=== PATIENT | male | born 1985 | race African-American/Black ===

== ENCOUNTER 2020-01-31 07:08 | Emergency (ER) | payer MEDICAID ==
[~2020-01-31] VITALS: Ht 175.3 cm; Wt 59.0 kg
[2020-01-31] MEDS ORDERED: LORazepam Inj 2mg/ml 1ml IM ONE (07:15)
--- NOTE | 2020-01-31 07:15 | NUR ---
ED Nurse Note: Patient was BIBA RA#[id number] from [facility], stated used meth 4-5 hours ago.Patient presented anxious, restless, has BP 180/110, other VSS at this time. Patient was connected to the monitor, ER MD at bed side,
--- NOTE | 2020-01-31 07:21 | Emergency Room Report ---
History of Present Illness General Chief Complaint: Behavioral Complaint Source: Patient Present Illness HPI Patient is a 34-year-old male presents for increased agitation after recent crystal meth use. Patient denies any other current complaints. Patient had been brought in by EMS from his boarding care. Denies any vomiting or diarrhea. Allergies: Coded Allergies: No Known Allergies (Unverified , 01/31/20) COVID-19 Screening Contact w/high risk pt: No Experienced COVID-19 symptoms?: No COVID-19 Testing performed RESEARCH BIOSTATISTICIAN: No Patient History Past Medical History: see triage record Reviewed Nursing Documentation: PMH: Agreed; PSxH: Agreed Nursing Documentation-PMH Hx Hypertension: Yes Review of Systems All Other Systems: negative except mentioned in HPI Physical Exam Vital Signs Date Time Temp Pulse Resp B/P (MAP) Pulse Ox O2 Delivery O2 Flow Rate FiO2 01/31/20 07:07 98.8 90 22 180/70 (106) 98 Room Air Sp02 EP Interpretation: reviewed, normal General Appearance: normal inspection, well appearing, no apparent distress, alert, GCS 15 Head: atraumatic ENT: normal ENT inspection, hearing grossly normal, normal voice Neck: normal inspection, full range of motion, supple, no bony tend Respiratory: normal inspection, lungs clear, normal breath sounds, no respiratory distress, no retraction, no wheezing Cardiovascular #1: regular rate, rhythm, no edema Gastrointestinal: normal inspection, normal bowel sounds, non tender, soft, no guarding, no hernia Genitourinary: no CVA tenderness Musculoskeletal: normal inspection, back normal, normal range of motion Neurologic: alert, responsive, speech normal, normal inspection Psychiatric: normal inspection, judgement/insight normal, mood/affect normal Medical Decision Making ER Course Patient presented for recent methamphetamine use.Differential diagnosis include was not limited to overdose, psychosis, substance abuse among others. EKG interpreted by me showed normal sinus rhythm with a rate of [address] or T wave changes. EKG Diagnostic Results Rate: normal Rhythm: NSR ST Segments: no acute changes Last Vital Signs Date Time Temp Pulse Resp B/P (MAP) Pulse Ox O2 Delivery O2 Flow Rate FiO2 01/31/20 07:07 98.8 90 22 180/70 (106) 98 Room Air Ladarius Friend MD Jan 31, 2020 07:21
[2020-01-31 07:27] VITALS: BP 180/110
--- NOTE | 2020-01-31 10:20 | NUR ---
spoke to hillary at the care center they are unable to picker tender helper the patient , patient will be send via taxi ti the [facility]
[2020-01-31 11:30] VITALS: BP 136/99
--- NOTE | 2020-01-31 11:45 | NUR ---
ED Nurse Note: Patient sleeping, VSS at this time, NAD noted
[2020-01-31 14:36] VITALS: BP 136/99
--- NOTE | 2020-01-31 14:37 | NUR ---
ER DISCHARGE NOTE: Patient is cleared to be discharged per ERMD, pt is aox4, on room air, with stable vital signs. pt was given dc and prescription instructions, pt was able to verbalize understanding, pt id band and iv site removed without complications. pt is able to ambulate with steady gait. pt took all belongings.
--- NOTE | 2020-02-02 16:13 | Cardiology Report ---
APPROVED REPORT EKG Measurement Heart [id number] <Conclusion> Normal sinus rhythm Moderate voltage criteria for LVH, may be normal variant Prolonged QT Abnormal ECG
== END 2020-01-31 14:37 | disposition home or self-care (01) ==
LOC: EDBD 07:08 → EMR 08:16
DX: R45.1 Restlessness and agitation (principal); F15.90 Other stimulant use, unspecified, uncomplicated; I10 Essential (primary) hypertension
CPT/HCPCS: 93005; 96372; Z7502; 99283